=== PATIENT | female | born 1975 | race Caucasian/White ===

== ENCOUNTER 2017-01-09 12:15 | Emergency (ER) | payer SELFPAY ==
[2017-01-09 12:50] LABS: Hemoglobin 14.6 g/dL (12.0-16.0); Mean Corpuscular HGB CONC 35.7 g/dL (32.0-36.0); Mean Corpuscular Volume 89.7 fl (81.0-99.0); Mean Platelet Volume 8.4 fL (7.4-10.4); Red Blood Cell (RBC) Count 4.55 mill/uL (4.20-5.40); White Blood Cell (WBC) Count 9.1 thou/uL (4.8-10.8)
[2017-01-09 12:51] LABS: Eosinophils 2 % (0-10); Lymphocytes 28 % (21-51); MDiff Complete? YES; Monocytes 5 % (0-10); Neutrophil 65 % (42-75); PLT Morphology Comment Appears Decreased; Platelet Clumps SLIGHT
[2017-01-09 12:54] LABS: CKMB 1.4 ng/mL (0-6.6); Troponin I Less than 0.010 ng/mL (< 0.028)
[2017-01-09 12:56] LABS: Lipase 23 U/L (8-78)
--- NOTE | 2017-01-09 12:59 | CT ---
BRAIN CT WITHOUT IV CONTRAST HISTORY: A 41-year-old female with chest pain and left arm numbness. This is a stroke protocol. FINDINGS: No focal mass or midline shift. No intraaxial or extraaxial hemorrhage. The sinuses and mastoids a re clear. No evidence for an acute infarct. IMPRESSION: Unremarkable brain CT. The findings were discussed with and acknowledged by Dr. Anthony Alfonso, at 12:40 p.m. CODE CR POS: [facility]
[2017-01-09 13:02] LABS: Amylase 50 U/L (25-125)
[2017-01-09 13:02] LABS: ALT (SGPT) 14 U/L (0-55); AST (SGOT) 23 U/L (5-34); Albumin 4.1 g/dL (3.5-5.0); Alkaline Phosphatase 80 U/L (40-150); Anion Gap 16 mmol/L (10-20); BUN (Urea Nitrogen) 17 mg/dL (7.0-18.7); Bilirubin, Total 0.3 mg/dL (0.2-1.2); Calc. Creatinine Clearance 0 mL/min (70-130); Calcium 9.3 mg/dL (7.8-10.44); Carbon Dioxide 20 mmol/L (22-29); Chloride 107 mmol/L (98-107); Estimated GFR-MDRD Greater than 90; Globulin 3.3 g/dL (2.4-3.5); Glucose 97 mg/dL (70-105); Potassium 4.6 mmol/L (3.5-5.1); Protein, Total 7.4 g/dL (6.0-8.3); Sodium 138 mmol/L (136-145)
[2017-01-09 13:14] LABS: PTT 28.2 SEC (22.9-36.1); Prothrombin Time 13.2 SEC (12.0-14.7)
[2017-01-09 13:21] LABS: Platelet Count 267 thou/uL (130-400)
[2017-01-09 13:23] LABS: #Basophils 0.1 thou/uL (0.0-0.2); #Eosinphils 0.2 thou/uL (0.0-0.7); #Monocytes 0.6 thou/uL (0.11-0.59); #Neutrophils 6.4 thou/uL (1.40-6.50); %Basophils 1.1 % (0.0-1.0); %Lymphocytes 29.1 % (21.0-51.0); %Monocytes 5.4 % (0.0-10.0); %Neutrophils 62.4 % (42.0-75.0)
--- NOTE | 2017-01-09 13:43 | RAD ---
AP SITTING CHEST PORTABLE ONE VIEW: History: 41-year-old female with chest pain and left arm numbness and lameness. FINDINGS: There is levoscoliosis of the upper thoracic vertebral column. Heart size is normal. There is some m ild increased markings in the infrahilar regions bilaterally, but no confluent pneumonia, overt allyson a or pleural effusion. IMPRESSION: No significant acute intrathoracic disease. Left upper thoracic spine levoscoliosis. POS: [facility]
[2017-01-09] MEDS ORDERED: Sodium Chloride 0.9% 1,000 ML ONE (13:44)
== END 2017-01-09 14:29 | disposition short-term general hospital (02) ==
LOC: NAV ERS 12:15
DX: I63.9 Cerebral infarction, unspecified (principal); R07.9 Chest pain, unspecified; J44.9 Chronic obstructive pulmonary disease, unspecified; F41.9 Anxiety disorder, unspecified; F31.9 Bipolar disorder, unspecified; F17.210 Nicotine dependence, cigarettes, uncomplicated
CPT/HCPCS: 36415; 36416; 51702; 70450; 71010; 80053; 82150; 82553; 83690; 84484; 85025; 85610; 85730; 93005; 96365; 96376; J2997; J7050

== ENCOUNTER 2017-09-13 12:00 | Emergency (ER) | payer SELFPAY ==
[2017-09-13] MEDS ORDERED: predniSONE 20 MG TAB ONE (13:27)
[2017-09-13] MEDS ORDERED: predniSONE 10 MG TAB ONE (13:27)
[2017-09-13] MEDS ORDERED: Sodium Chloride 0.9% 100 ML ONE (13:27)
[2017-09-13] MEDS ORDERED: Metoclopramide HCl 10 MG/2 ML VIAL ONE (13:27)
[2017-09-13 13:42] LABS: #Basophils 0.1 thou/uL (0.0-0.2); #Eosinphils 0.2 thou/uL (0.0-0.7); #Lymphocytes 2.7 thou/uL (1.20-3.40); #Monocytes 0.8 thou/uL (0.11-0.59); %Basophils 0.8 % (0.0-1.0); %Eosinophils 1.4 % (0.0-10.0); %Lymphocytes 18.3 % (21.0-51.0); %Monocytes 5.4 % (0.0-10.0); %Neutrophils 74.1 % (42.0-75.0); Hemoglobin 14.5 g/dL (12.0-16.0); Mean Corpuscular HGB CONC 33.7 g/dL (32.0-36.0); Mean Corpuscular Hemoglobin 31.8 pg (27.0-31.0); Mean Corpuscular Volume 94.1 fl (81.0-99.0); Mean Platelet Volume 7.8 fL (7.4-10.4); Platelet Count 270 thou/uL (130-400); Red Blood Cell (RBC) Count 4.56 mill/uL (4.20-5.40); White Blood Cell (WBC) Count 14.8 thou/uL (4.8-10.8)
[2017-09-13 14:16] LABS: ALT (SGPT) 17 U/L (8-55); AST (SGOT) 20 U/L (5-34); Albumin 4.2 g/dL (3.5-5.0); Alkaline Phosphatase 77 U/L (40-150); Anion Gap 14 mmol/L (10-20); BUN (Urea Nitrogen) 20 mg/dL (7.0-18.7); Bilirubin, Total 0.2 mg/dL (0.2-1.2); Calc. Creatinine Clearance 0 mL/min (70-130); Calcium 9.5 mg/dL (7.8-10.44); Carbon Dioxide 21 mmol/L (22-29); Chloride 107 mmol/L (98-107); Estimated GFR-MDRD Greater than 90; Globulin 3.5 g/dL (2.4-3.5); Glucose 84 mg/dL (70-105); Lipase 34 U/L (8-78); Protein, Total 7.7 g/dL (6.0-8.3); Sodium 138 mmol/L (136-145)
== END 2017-09-13 15:06 | disposition home or self-care (01) ==
LOC: NAV ERS 12:00
DX: J44.1 Chronic obstructive pulmonary disease with (acute) exacerbation (principal); G43.909 Migraine, unspecified, not intractable, without status migrainosus; F31.9 Bipolar disorder, unspecified; F41.9 Anxiety disorder, unspecified; F17.210 Nicotine dependence, cigarettes, uncomplicated
CPT/HCPCS: 36415; 80053; 83690; 85025; 93005; 94640; 96365; J2765; J7506; J7512; J7620

== ENCOUNTER 2017-10-21 13:02 | Emergency (ER) | payer SELFPAY ==
[2017-10-21] MEDS ORDERED: Bupivacaine 0.5% 10 ML VIAL ONE (13:15)
[2017-10-21] MEDS ORDERED: Adacel (T-DAP) 0.5 ML VIAL ONE (13:20)
--- NOTE | 2017-10-21 13:47 | RAD ---
2 VIEWS RIGHT THUMB: Date: 10/21/17 COMPARISON: None. HISTORY: Smashed right thumb in door. FINDINGS: No fracture or dislocation. No radiopaque foreign body. IMPRESSION: No acute osseous abnormality. POS: [facility]
[2017-10-21] MEDS ORDERED: Bacitracin Zinc 1 Packet ONE (13:50)
== END 2017-10-21 14:03 | disposition home or self-care (01) ==
LOC: NAV ERS 13:02
DX: S67.01XA Crushing injury of right thumb, initial encounter (principal); I25.10 Atherosclerotic heart disease of native coronary artery without angina pectoris; F41.9 Anxiety disorder, unspecified; F31.9 Bipolar disorder, unspecified; F43.10 Post-traumatic stress disorder, unspecified; F60.3 Borderline personality disorder; F17.210 Nicotine dependence, cigarettes, uncomplicated; Z79.899 Other long term (current) drug therapy; W23.0XXA Caught, crushed, jammed, or pinched between moving objects, initial encounter
CPT/HCPCS: 12001; 90471; 90715; J3490

== ENCOUNTER 2017-12-22 20:35 | Emergency (ER) | payer SELFPAY ==
[2017-12-22] MEDS ORDERED: cefTRIAXone\\ROCEPHIN 1 GM VIAL ONE (21:22)
[2017-12-22] MEDS ORDERED: Lidocaine 1% 20 ML MDV ONE (21:22)
[2017-12-22] MEDS ORDERED: methylPREDNISolone Acetate 40 mg/ml Vial ONE (21:22)
--- NOTE | 2017-12-22 21:27 | RAD ---
TWO VIEWS OF THE CHEST 12/22/17 COMPARISON: 01/09/17 HISTORY: Intermittent chest pain with cough. FINDINGS: Stable S-shaped scoliosis of the thoracic spine noted. No pneumothorax, pleural fluid, lobar consoli dation, or alveolar edema. IMPRESSION: Stable appearance to the chest - no acute findings. POS: [facility]
== END 2017-12-22 22:00 | disposition home or self-care (01) ==
LOC: NAV ERS 20:35
DX: J44.1 Chronic obstructive pulmonary disease with (acute) exacerbation (principal); F41.9 Anxiety disorder, unspecified; F31.9 Bipolar disorder, unspecified; F43.10 Post-traumatic stress disorder, unspecified; F17.210 Nicotine dependence, cigarettes, uncomplicated; F60.3 Borderline personality disorder; Z71.6 Tobacco abuse counseling; Z79.899 Other long term (current) drug therapy; Z86.73 Personal history of transient ischemic attack (TIA), and cerebral infarction without residual deficits
CPT/HCPCS: 71046; 94640; 96372; 99406; J0696; J1030; J2001; J7620

== ENCOUNTER 2019-04-01 13:38 | Emergency (ER) | payer SELFPAY ==
[2019-04-01] MEDS ORDERED: HYDROcodone/Acetaminophen 5/325 mg Tablet ONE (14:07)
--- NOTE | 2019-04-01 14:07 | RAD ---
THREE VIEWS RIGHT HAND: 04/01/19 HISTORY: Hit tile wall. Third metacarpal pain. FINDINGS: Distal third metacarpal fracture with possible intra-articular extension. There is associated deformi ty and soft tissue swelling. Irregularity involving the fourth metacarpal likely due to remote trauma. Additional acute fractures are not appreciated. IMPRESSION: Acute fracture involving the third metacarpal head with associated deformity and soft tissue swelling . POS: [facility]
[2019-04-01] MEDS ORDERED: Bacitracin Zinc 1 Packet ONE (14:21)
== END 2019-04-01 14:54 | disposition home or self-care (01) ==
LOC: NAV ERS 13:38
DX: S62.332A Displaced fracture of neck of third metacarpal bone, right hand, initial encounter for closed fracture (principal); J44.9 Chronic obstructive pulmonary disease, unspecified; F31.9 Bipolar disorder, unspecified; F41.9 Anxiety disorder, unspecified; F43.10 Post-traumatic stress disorder, unspecified; F17.210 Nicotine dependence, cigarettes, uncomplicated; W22.8XXA Striking against or struck by other objects, initial encounter; Z79.899 Other long term (current) drug therapy; Z86.73 Personal history of transient ischemic attack (TIA), and cerebral infarction without residual deficits
CPT/HCPCS: 26600

== ENCOUNTER 2020-01-16 15:23 | Emergency (ER) | payer OTHER, SELFPAY ==
[2020-01-16] MEDS ORDERED: Ketorolac Tromethamine 60 MG/2 ML VIAL ONE (15:59)
--- NOTE | 2020-01-16 16:19 | RAD ---
NO DICTATION Dr. Johnson, no dictation is coming across. All your reports so far have 4473.92 minutes. Please kristi ck on your end for the problem. POS: [facility]
--- NOTE | 2020-01-16 16:20 | RAD ---
Right knee 4 views: 01/16/2020 COMPARISON: 05/26/2018 HISTORY: History of tibial plateau fracture 6 weeks ago, recent twisting injury FINDINGS: No knee joint effusion. No definite acute fracture or dislocation. There is a fracture with mild depression involving the lateral tibial plateau, consistent with the provided history of tibial plateau fracture 6 weeks ago. IMPRESSION: Evidence of mildly depressed right lateral tibial plateau fracture, consistent with the p rovided history. No knee joint effusion or definite acute component. A degree of worsening of a lateral tibial plateau fracture is difficult to exclude without comparison imaging however.
--- NOTE | 2020-01-19 07:26 | RAD ---
RIGHT TIBIA AND FIBULA: 01/16/20 Two views. HISTORY: History of tibial plateau fracture six weeks ago. Twisted knee today. FINDINGS: There is deformity of the lateral tibial plateau consistent with the history of recent fracture. No e vidence of acute fracture. IMPRESSION: Deformity of the lateral tibial plateau consistent with history. No acute fracture identified. POS: [facility]
== END 2020-01-16 16:35 | disposition home or self-care (01) ==
LOC: NAV ERS 15:23
DX: S83.91XA Sprain of unspecified site of right knee, initial encounter (principal); M79.604 Pain in right leg; J44.9 Chronic obstructive pulmonary disease, unspecified; F41.9 Anxiety disorder, unspecified; F31.9 Bipolar disorder, unspecified; F43.10 Post-traumatic stress disorder, unspecified; F17.210 Nicotine dependence, cigarettes, uncomplicated; Z79.51 Long term (current) use of inhaled steroids; Z79.899 Other long term (current) drug therapy; Z86.73 Personal history of transient ischemic attack (TIA), and cerebral infarction without residual deficits; X50.9XXA Other and unspecified overexertion or strenuous movements or postures, initial encounter
CPT/HCPCS: 96372; J1885

== ENCOUNTER 2021-02-20 15:07 | Emergency (ER) | payer OTHER ==
[2021-02-20] MEDS ORDERED: Naproxen 500 MG TAB ONE (16:01)
== END 2021-02-20 16:03 | disposition home or self-care (01) ==
LOC: NAV ERS 15:07
DX: S80.02XA Contusion of left knee, initial encounter (principal); J44.9 Chronic obstructive pulmonary disease, unspecified; F17.210 Nicotine dependence, cigarettes, uncomplicated; Z79.899 Other long term (current) drug therapy; W01.0XXA Fall on same level from slipping, tripping and stumbling without subsequent striking against object, initial encounter

== ENCOUNTER 2023-01-18 13:42 | Emergency (ER) | payer OTHER ==
[2023-01-18] MEDS ORDERED: Ketorolac Tromethamine 60 MG/2 ML VIAL ONE (14:50)
== END 2023-01-18 15:11 | disposition home or self-care (01) ==
LOC: NAV ERS 13:42
DX: S93.602A Unspecified sprain of left foot, initial encounter (principal); S93.402A Sprain of unspecified ligament of left ankle, initial encounter; J44.9 Chronic obstructive pulmonary disease, unspecified; F17.210 Nicotine dependence, cigarettes, uncomplicated; W54.1XXA Struck by dog, initial encounter
CPT/HCPCS: 96372; J1885